=== PATIENT | male | born 1995 | race Caucasian/White ===

== ENCOUNTER 2021-11-21 19:52 | Emergency (ER) | payer BC ==
[~2021-11-21] VITALS: Ht 182.9 cm; Wt 95.0 kg
[2021-11-21 19:52] VITALS: BP 137/95
[2021-11-21] MEDS ORDERED: DIPHTH,PERTUSS(ACELL),TET TOX 0.5 ML DISP.SYRIN. VAX IM ONE (20:15)
[2021-11-21] MEDS ORDERED: NEOMY/BACITR/POLYMYXIN OINT PACKET. TP ONE (20:15)
[2021-11-21] MEDS ORDERED: HYDROcodone/APAP 5/325MG 1 TAB TABLET PO ONE (20:15)
--- NOTE | 2021-11-21 20:19 | PHYS DOC ---
Past Medical History Past Surgical History: No Surgical History Adult General Chief Complaint Chief Complaint: BURN/SMOKE INHALATION HPI HPI Patient is a 25 year old male present emergency department for evaluation of left hand burn that was sustained shortly prior to arrival. 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 He has obvious blistering and erythema to the hand and he says it is quite intensely painful. The burn is not circumferential and is only on the palm aspect of the proximal aspect of his hand. No fingers are burned and he denies any weakness numbness or tingling. He is unsure about his tetanus status so will be updated here. He denies any other areas of injury or pain and he is in no acute distress. Review of Systems Review of Systems Constitutional: Denies fever or chills [] Musculoskeletal: Denies back pain or joint pain [] Integument: Positive skin lesions Neurologic: Denies headache, focal weakness or sensory changes [] All other systems were reviewed and found to be within normal limits, except as documented in this note. Current Medications Current Medications Current Medications Medications (Trade) Dose Ordered Sig/Eugenio Start Time Stop Time Status Last Admin Dose Admin Acetaminophen/ Hydrocodone Bitart (Lortab 5/325) 2 tab 1X ONCE 11/21/21 20:15 11/21/21 20:16 DC 11/21/21 20:41 2 TAB Diphtheria/ Tetanus/Acell Pertussis (Boostrix) 0.5 ml ONCE ONCE 11/21/21 20:15 11/21/21 20:16 DC 11/21/21 20:48 0.5 ML Neomycin/ Polymyxin/ Bacitracin (Triple Antibiotic Ointment) 2 pkt 1X ONCE 11/21/21 20:15 11/21/21 20:16 DC 11/21/21 20:40 2 PKT Allergies Allergies Allergies Coded Allergies Type Severity Reaction Last Updated Verified No Known Drug Allergies 11/21/21 No Physical Exam Physical Exam Constitutional: Well developed, well nourished, no acute distress, non-toxic appearance. [] Skin: Erythema and blistering to the proximal aspect of the left hand. He has sensation to all areas of blistering and erythema. Distally he is neurovascular intact. Extremities: No tenderness, no cyanosis, no clubbing, ROM intact, no edema. [] Neurologic: Alert and oriented X 3, normal motor function, normal sensory function, no focal deficits noted. [] Current Patient Data Vital Signs Vital Signs Date Time Temp Pulse Resp B/P (MAP) Pulse Ox O2 Delivery O2 Flow Rate FiO2 11/21/21 20:41 18 99 Room Air 11/21/21 19:52 97.9 95 137/95 (109) 97.9 EKG EKG [] Radiology/Procedures Radiology/Procedures [] Course & Med Decision Making Course & Med Decision Making Patient has signs and symptoms of a second-degree burn. There is no circumferential burn and given he has sensation there is no signs or symptoms of a third-degree burn. Patient's pain will be treated here in the emergency department and his wounds will be dressed with Neosporin and then wrapped. Patient will be treated supportively as an outpatient and told to follow with the burn center at [facility]. Patient will be discharged in stable condition. Patient verbalized understanding of the need for burn center follow- up and strict ED return precautions discussed worsening pain numbness or other general concerns. Dragon Disclaimer Dragon Disclaimer This electronic medical record was generated, in whole or in part, using a voice recognition dictation system. Departure Departure Impression: Primary Impression: Second degree burn of hand Disposition: HOME / SELF CARE / HOMELESS Condition: STABLE Patient Instructions: Burn Care Additional Instructions: Take 800 mg of ibuprofen every 8 hours for pain and the [place] for breakthrough pain. Put Neosporin on the wounds. Follow with the or critical [facility] burn center for further follow-up to ensure proper healing. Scripts Hydrocodone Bit/Acetaminophen (HYDROCODONE-APAP 5-325 ) 1 Tab Tablet 1 TAB PO PRN Q6HRS PRN for PAIN, #14 TAB 0 Refills Prov: SANTOSH MURRAY DO 11/21/21 Problem Qualifiers Primary Impression: Second degree burn of hand Encounter type: initial encounter Burn of hand location: palm Laterality: left Qualified Codes: T23.252A - Burn of second degree of left palm, initial encounter SANTOSH MURRAY DO November 21, 2021 20:19
[2021-11-21] MEDS ORDERED: HYDR-2761 PO (20:53)
== END 2021-11-21 21:30 | disposition home or self-care (01) ==
LOC: ER 19:52
DX: T23.252A Burn of second degree of left palm, initial encounter (principal); X08.8XXA Exposure to other specified smoke, fire and flames, initial encounter; Y93.89 Activity, other specified; Y92.89 Other specified places as the place of occurrence of the external cause; Y99.8 Other external cause status
CPT/HCPCS: 90471; 90715; 99283-25